=== PATIENT | male | born 1965 | race Caucasian/White ===

== ENCOUNTER 2016-08-18 22:32 | Emergency (ER) | payer SELFPAY ==
[~2016-08-18] VITALS: Ht 177.8 cm; Wt 84.0 kg
[~2016-08-18 22:32] MED LIST: BENADRYL50 MG PO
[2016-08-19 01:22] VITALS: BP 118/81
== END 2016-08-19 01:29 | disposition home or self-care (01) ==
LOC: EME 22:32
DX: T18.108A Unspecified foreign body in esophagus causing other injury, initial encounter (principal); F17.200 Nicotine dependence, unspecified, uncomplicated
CPT/HCPCS: 70360; 99281; 99284